=== PATIENT | female | born 1965 | race Caucasian/White ===

== ENCOUNTER 2019-12-16 06:57 | Day surgery (SDC) | payer BC, SELFPAY ==
--- NOTE | 2019-12-14 09:57 | HO.ANESPROP2 ---
Documented by User: Bernadette Her 12/14/19 09:58 [facility] Past Medical History Medical History Anemia Chronic pain syndrome Depression Fibromyalgia Hx of intestinal obstruction Hypothyroidism Low vitamin D level Nephrolithiasis Peptic ulcer Surgical History Surgical History H/O: hysterectomy Social History Social History Smoking Status: Never smoker Second Hand Smoke Exposure: Yes Use of substances other than those prescribed or required for medical reasons: No Advance Directives: No Advance Directives Information Provided: No Recently lost weight without trying: No Meds Allergies Allergy/AdvReac Type Severity Reaction Status Date / Time No Known Allergies Allergy Unverified 12/02/19 15:24 [No Known Allergies*] Home Medications Medication Instructions Recorded Confirmed Type celecoxib 1 cap PO BID PRN 12/13/19 12/13/19 History cholecalciferol (vitamin D3) 1 cap PO BEDTIME 12/13/19 12/13/19 History citalopram 1 tab PO DAILY 12/13/19 12/13/19 History cyclobenzaprine 1 tab PO BEDTIME PRN 12/13/19 12/13/19 History ferrous sulfate 325 mg PO TID 12/13/19 12/13/19 History hydrocodone-acetaminophen 1 tab PO Q8H PRN 12/13/19 12/13/19 History hydroxychloroquine 1 tab PO BID 12/13/19 12/13/19 History omeprazole 40 mg PO BID 12/13/19 12/13/19 History Exam Exam Date and Time: December 14, 2019 0957 Assessment and Plan Assessment Anesthesia Assessment: Chart Reviewed (12/14/19 HT) Documented by User: Michelle Will 12/16/19 07:17 [facility] Past Medical History Medical History Anemia Chronic pain syndrome Depression Fibromyalgia Hx of intestinal obstruction Hypothyroidism Low vitamin D level Nephrolithiasis Peptic ulcer Surgical History Surgical History H/O: hysterectomy Social History Social History Smoking Status: Never smoker Second Hand Smoke Exposure: Yes Use of substances other than those prescribed or required for medical reasons: No Advance Directives: No Advance Directives Information Provided: No Recently lost weight without trying: No Meds Allergies Allergy/AdvReac Type Severity Reaction Status Date / Time No Known Allergies Allergy Unverified 12/02/19 15:24 [No Known Allergies*] Home Medications Medication Instructions Recorded Confirmed Type celecoxib 1 cap PO BID PRN 12/13/19 12/13/19 History cholecalciferol (vitamin D3) 1 cap PO BEDTIME 12/13/19 12/13/19 History citalopram 1 tab PO DAILY 12/13/19 12/13/19 History cyclobenzaprine 1 tab PO BEDTIME PRN 12/13/19 12/13/19 History ferrous sulfate 325 mg PO TID 12/13/19 12/13/19 History hydrocodone-acetaminophen 1 tab PO Q8H PRN 12/13/19 12/13/19 History hydroxychloroquine 1 tab PO BID 12/13/19 12/13/19 History omeprazole 40 mg PO BID 12/13/19 12/13/19 History Exam Airway Mallampati Class: II TM Dist: >3cm Neck ROM: Full Loose/Missing/Broken Teeth: No Assessment and Plan Assessment Anesthesia Assessment: Anesthesia Plan Discussed, Consent Obtained and Chart Reviewed Final Anesthetic Review NPO: Yes Intake Type: Clears and Solids ASA Class: II Final Preanesthetic Review: No Changes in Pt Med Stat, Meds & Allergies Reviewed, Consent Obtained/Reviewed, Med/Surg/Anes Hx Reviewed and Anes Risks/Benef Reviewed Patient Risk: Low Procedure Risk: Low Assessment/Block/Sedation in SS: Assess/Block/Sedation-SS Anesthetic Plan Anesthetic Plan: MAC: Disposition: Standard PACU
[2019-12-16 06:55] VITALS: BP 113/68; PULSE 79; RESP 18; O2SAT 98; BMI 24.5
[2019-12-16] MEDS: Lactated Ringers 1,000 ML 100 ML IVCONT (07:19)
--- NOTE | 2019-12-16 07:57 | PC.NURSE ---
PL- IN ROOM LATE FOR NEW COMPUTER PROGRAME.
[2019-12-16 08:35] VITALS: BP 88/48; PULSE 72; RESP 16; O2SAT 95
--- NOTE | 2019-12-16 08:36 | PM.OP ---
Brief Operative Note Date of procedure: 12/17/19 Pre-op diagnosis: FU of Gastric ulcer Post-op diagnosis: other (Gastritis, Gastro-duodenal Fistula) Procedure: FLEXIBLE TRANSORAL UPPER GASTROINTESTINAL ENDOSCOPY UPPER ENDOSCOPY Consent: Indications for the procedure and potential complications of bleeding, perforation, reaction to medications and missed diagnosis were discussed with the patient and informed consent was obtained. Instrument: Olympus GIF H 190 mid size upper endoscope Monitoring: Vital signs and clinical assessment, continuous EKG monitoring, Pulse oximetry, Carbon Dioxide monitoring and blood pressure monitoring were done throughout the procedure. Procedure: The patient was placed in the left lateral decubitis position and pre-procedure medications were administered and a bite block was placed. The endoscope was inserted into the mouth and advanced under direct vision to the third part of duodenum. A careful inspection was made as the upper endoscope was withdrawn including a retroflexed examination of the proximal stomach; Findings and interventions are described below. Findings: Larynx: Normal Esophagus: GE junction at 36 cms. No esophagitis or Reyes. 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 Ulcer seen on past EGD healed completely. Mild gastric erythema. Biopsies were obtained from the gastric antrum and body. Decreased fundal folds and Grade 2 flap valve on retroflexed examination of the cardia. Duodenum: Normal bulb and descending duodenum. Biopsies were obtained from 3rd part of duodenum to check for celiac sprue. 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 Ulcer seen on past EGD healed completely. Mild gastric erythema. Biopsies were obtained from the gastric antrum and body. Decreased fundal folds and Grade 2 flap valve on retroflexed examination of the cardia. Of note - patient reports having gastric surgery for gastric outlet obstruction (? Gastrojejunostomy) several years ago in [place]. DUODENUM: Normal. Bxed to check for celiac sprue Plan: Await pathology results Continue present medications (Omeprazole at 20 mg PO once daily) Patient has an FU appointment in the GI Clinic on 12/30/19 with Toño Agudelo MD. Above findings were reviewed with the patient. Anesthesia: MAC (Dr Will) Surgeon: Toño Agudelo Pathology: other (A. Small bowel, B. Gastric antrum. C. Gastric Body) Condition: stable Disposition: PACU
[2019-12-16 08:50] VITALS: BP 117/70; PULSE 71; RESP 15; O2SAT 97
[2019-12-16 09:05] VITALS: BP 120/60; PULSE 71; RESP 18; O2SAT 99
--- NOTE | 2019-12-16 09:30 | HO.POSTANES ---
Post Anesthesia Evaluation Post Anesthesia Evaluation Vital Signs: Vital Signs Pulse Resp BP Pulse Ox 12/16/19 06:55 79 18 113/68 98 0906 - 120/60, 71, 18, 99%RA Anesthesia: Monitored Mental Status: Awake Pain Control: Satisfactory Nausea/Vomiting: None Hydration: Adequate Anesthesia-Related Issues: No Anes. Related Issues
[2019-12-16 09:37] VITALS: BP 84/49; RESP 16; TEMP 36.6; O2SAT 95
== END 2019-12-16 23:59 | disposition home or self-care (01) ==
PROVIDERS: PCP Internal Medicine; Visit Provider Internal Medicine Gastroenterology
PROC: 0DJ08ZZ Inspection of Upper Intestinal Tract, Via Natural or Artificial Opening Endoscopic (ICD-10-PCS; CPT 43235; principal; 2019-12-16 07:30)
DX: K27.9 Peptic ulcer, site unspecified, unspecified as acute or chronic, without hemorrhage or perforation (principal); K29.50 Unspecified chronic gastritis without bleeding; B96.81 Helicobacter pylori [H. pylori] as the cause of diseases classified elsewhere; K31.6 Fistula of stomach and duodenum; D64.9 Anemia, unspecified; G89.4 Chronic pain syndrome; F32.9 Major depressive disorder, single episode, unspecified; E03.9 Hypothyroidism, unspecified; E55.9 Vitamin D deficiency, unspecified; Z79.899 Other long term (current) drug therapy; Z77.22 Contact with and (suspected) exposure to environmental tobacco smoke (acute) (chronic)
CPT/HCPCS: 43239; 88305; 88342; J3010

== ENCOUNTER → 2019-12-29 14:41 | Outpatient (BNVA) | payer BC, SELFPAY | PROVIDERS: PCP Internal Medicine; Visit Provider Anesthesiology | DX: Z76.89 Persons encountering health services in other specified circumstances (principal) ==

== ENCOUNTER → 2020-02-07 08:23 | Outpatient (BNVA) | payer BC, SELFPAY | PROVIDERS: PCP Internal Medicine; Visit Provider Anesthesiology | DX: Z76.89 Persons encountering health services in other specified circumstances (principal) ==

== ENCOUNTER 2020-02-21 13:53 | Outpatient (REF) | payer BC, SELFPAY ==
[2020-02-21 14:06] LABS: Glucose Urine UA NEG (NEG); Leukocyte Esterase Urine 1+ (NEG); Nitrite Urine NEG (NEG); Specific Gravity - Urine >= 1.030 (1.005-1.025); Urine Blood 1+ (NEG); Urine Ketones NEG (NEG); Urine Protein NEG (NEG-TRACE)
[2020-02-21 14:14] LABS: Appearance Urine CLOUDY; Color Urine STRAW
[2020-02-21 14:27] LABS: Squamous Epithelial Cell Urine 1+ /LPF; White Blood Cell Casts Urine 0-2 /LPF
[2020-02-21 14:28] LABS: Mucus Urine 1+ /LPF
== END 2020-02-21 13:54 | disposition home or self-care (01) ==
LOC: HO.LNP 13:53
PROVIDERS: Visit Provider Internal Medicine
DX: M54.9 Dorsalgia, unspecified (principal)
CPT/HCPCS: 81001; 81003; 87086

== ENCOUNTER → 2020-03-08 08:02 | Outpatient (BNVA) | payer BC, SELFPAY | PROVIDERS: PCP Internal Medicine; Visit Provider Anesthesiology | DX: Z76.89 Persons encountering health services in other specified circumstances (principal) ==

== ENCOUNTER → 2020-04-06 08:17 | Outpatient (BNVA) | payer OTHER, SELFPAY | PROVIDERS: PCP Internal Medicine; Visit Provider Anesthesiology ==

== ENCOUNTER 2020-05-22 13:17 | Outpatient (REF) | payer OTHER, SELFPAY | END 2020-05-22 13:18 | disposition home or self-care (01) | LOC: HO.LAB 13:17 | PROVIDERS: Visit Provider Internal Medicine | DX: Z20.822 Contact with and (suspected) exposure to COVID-19 (principal) | CPT/HCPCS: 36415; C9803; U0003; U0005 ==

== ENCOUNTER → 2020-05-24 08:25 | Outpatient (BNVA) | payer OTHER, SELFPAY | PROVIDERS: PCP Internal Medicine; Visit Provider Anesthesiology ==

== ENCOUNTER 2020-06-19 09:29 | Outpatient (REF) | payer OTHER, SELFPAY ==
--- NOTE | ~2020-06-19 | US_ITS ---
EXAMINATION: US ABDOMEN COMPLETE CLINICAL INFORMATION: Right upper quadrant pain. COMPARISON: CT abdomen and pelvis 07/23/2019. Renal ultrasound 07/22/2019 and 04/12/2019. TECHNIQUE: Real-time imaging of the abdominal viscera. FINDINGS: PANCREAS: Normal. ABDOMINAL AORTA: The proximal, mid, and distal segments are normal in caliber. INFERIOR VENA CAVA: Visualized portions are normal. LIVER: The liver is normal in size. The liver contour is normal. Slightly heterogeneous hepatic parenchyma with minimally increased echogenicity. Findings can be seen in the setting of mild steatosis. Underlying hepatocellular disease cannot be excluded. No focal hepatic lesion. There is no intrahepatic biliary duct dilatation seen. GALLBLADDER: Normal. The gallbladder is physiologically distended without evidence of stones, sludge, polyps, wall thickening or pericholecystic fluid. COMMON BILE DUCT: Normal in caliber measuring 0.12 cm in diameter. RIGHT KIDNEY: Normal. No hydronephrosis. No renal calculi or focal parenchymal lesions. The kidney measures 10.7 cm in maximum dimension. LEFT KIDNEY: Normal. No hydronephrosis. No renal calculi or focal parenchymal lesions. The kidney measures 10.1 cm in maximum dimension. SPLEEN: Normal. The spleen measures 6.7 cm in maximum dimension. FREE FLUID: None. US/US abdomen complete IMPRESSION: Slightly heterogeneous hepatic parenchyma with minimally increased echogenicity, which can be seen in the setting of mild steatosis. Underlying basilar disease cannot be excluded. No hepatic parenchymal lesion or biliary ductal dilatation. Otherwise unremarkable examination.
== END 2020-06-19 09:30 | disposition home or self-care (01) ==
LOC: HO.US 09:29
PROVIDERS: PCP Internal Medicine; Visit Provider Internal Medicine
DX: R10.11 Right upper quadrant pain (principal)
CPT/HCPCS: 76700

== ENCOUNTER → 2020-06-21 09:01 | Outpatient (BNVA) | payer OTHER, SELFPAY | PROVIDERS: PCP Internal Medicine; Visit Provider Nurse Practitioner Family ==

== ENCOUNTER → 2020-07-19 08:27 | Outpatient (BNVA) | payer OTHER, SELFPAY | PROVIDERS: PCP Internal Medicine; Visit Provider Nurse Practitioner Family ==

== ENCOUNTER 2020-08-30 07:28 | Outpatient (REF) | payer OTHER, SELFPAY | END 2020-08-30 07:29 | disposition home or self-care (01) | LOC: HO.LAB 07:28 | PROVIDERS: Visit Provider Internal Medicine | DX: Z20.822 Contact with and (suspected) exposure to COVID-19 (principal) | CPT/HCPCS: C9803; U0003; U0005 ==

== ENCOUNTER 2020-11-08 07:28 | Outpatient (REF) | payer OTHER, SELFPAY ==
[2020-11-08 09:29] LABS: Alanine Aminotransferase 14 U/L (0-31); Albumin Level 4.2 g/dL (3.5-5.0); Alkaline Phosphatase 50 U/L (39-117); Anion Gap 11 (12-20); Aspartate Amino Transferase 16 U/L (5-31); Bilirubin Total 0.4 mg/dL (0.0-1.0); Blood Urea Nitrogen 22 mg/dL (9-16); Calcium 8.7 mg/dL (8.4-10.2); Carbon Dioxide 29 mmol/L (22-29); Chloride 103 mmol/L (96-108); Cholesterol 212 mg/dL; Estimated Glomerular Filt Rate > 60; Glucose Fasting 96 mg/dL (60-99); HDL Cholesterol 88 mg/dL; LDL Cholesterol Calculated 117 mg/dl; Potassium 4.3 mmol/L (3.3-5.1); Sodium 139 mmol/L (135-145); Total Protein 6.6 g/dL (6.5-8.0); Triglycerides 38 mg/dL
[2020-11-08 09:58] LABS: Free T4 (Free Thyroxine) 1.03 ng/dL (0.71-1.85); Thyroid Stimulating Hormone 1.25 uIU/mL (0.32-4.0); Vitamin D 25-OH Total 20.3 ng/mL (>30)
[2020-11-09 09:21] LABS: Thyroid Peroxidase Antibodies 58 IU/mL (<9)
== END 2020-11-08 07:29 | disposition home or self-care (01) ==
LOC: HO.LAB 07:28
PROVIDERS: PCP Internal Medicine; Visit Provider Internal Medicine
DX: E03.9 Hypothyroidism, unspecified (principal)
CPT/HCPCS: 36415; 80053; 80061; 82306; 84439; 84443; 86376

== ENCOUNTER 2020-11-13 10:42 | Outpatient (REF) | payer OTHER, SELFPAY ==
--- NOTE | ~2020-11-13 | XR_ITS ---
EXAMINATION: XR CHEST CLINICAL INFORMATION: Cough COMPARISON: Previous chest x-ray most recent July 2019 TECHNIQUE: 2 views of the chest were obtained. FINDINGS: The cardiac and mediastinal contours are stable. There is mild biapical pleural thickening. The lungs are otherwise clear. There is no pleural effusion or pneumothorax. Bony structures are unremarkable. XR/XR chest 2V IMPRESSION: No evidence for acute disease in the chest.
== END 2020-11-13 10:43 | disposition home or self-care (01) ==
LOC: HO.HMGCX 10:42
PROVIDERS: PCP Internal Medicine; Visit Provider Internal Medicine
DX: Z13.89 Encounter for screening for other disorder (principal)
CPT/HCPCS: 71046

== ENCOUNTER → 2020-12-26 10:11 | Outpatient (BNVA) | payer OTHER, SELFPAY | PROVIDERS: PCP Internal Medicine; Referring Provider Internal Medicine; Visit Provider Nurse Practitioner ==

== ENCOUNTER 2020-12-27 10:00 | Outpatient (REF) | payer OTHER, SELFPAY ==
--- NOTE | ~2020-12-27 | US_ITS ---
EXAMINATION: US ABDOMEN COMPLETE CLINICAL INFORMATION: Fistula of stomach and duodenum, gastric pain. COMPARISON: Ultrasound abdomen complete 06/19/2020. Ultrasound kidneys and bladder 12/30/2019. CT abdomen and pelvis 07/23/2019. TECHNIQUE: Real-time imaging of the abdominal viscera. FINDINGS: PANCREAS: Normal ABDOMINAL AORTA: The proximal, mid, and distal segments are normal in caliber. INFERIOR VENA CAVA: Visualized portions are normal. LIVER: The liver is normal in size. The liver contour is normal. Parenchymal echogenicity is normal. There is an anechoic cyst in the right hepatic lobe measuring 0.6 x 0.5 x 0.4 cm. There is no intrahepatic biliary duct dilatation seen. GALLBLADDER: Normal. The gallbladder is physiologically distended without evidence of stones, sludge, polyps, wall thickening or pericholecystic fluid. COMMON BILE DUCT: Normal in caliber measuring 0.5 cm in diameter. RIGHT KIDNEY: There is an echogenic stone upper pole measuring 0.1 x 0.2 cm. No hydronephrosis or focal parenchymal lesions. The kidney measures 10.8 cm in maximum dimension. LEFT KIDNEY: Normal. No hydronephrosis. No renal calculi or focal parenchymal lesions. The kidney measures 10.4 cm in maximum dimension. SPLEEN: Normal. The spleen measures 7.4 cm in maximum dimension. FREE FLUID: None US/US abdomen complete IMPRESSION: Small right hepatic cyst measuring 0.6 x 0.5 x 0.4 cm. Echogenic upper pole stone right kidney without caliectasis or hydronephrosis. The rest of the abdominal ultrasound is unremarkable.
== END 2020-12-27 10:01 | disposition home or self-care (01) ==
LOC: HO.US 10:00
PROVIDERS: PCP Internal Medicine; Visit Provider Internal Medicine
DX: K31.6 Fistula of stomach and duodenum (principal); R10.13 Epigastric pain
CPT/HCPCS: 76700

== ENCOUNTER 2021-01-12 11:10 | Day surgery (SDC) | payer OTHER, SELFPAY ==
[2021-01-05 14:24] VITALS: BMI 27.4
--- NOTE | 2021-01-11 09:48 | HO.ANESPROP2 ---
Documented by User: Bernadette Her NP 01/11/21 09:51 HPI - Anesthesia Eval Consult details Narrative: 55yo F for Upper Endoscopy s/p EGD 12/2019 with [facility] Active Problems Active Problems: All Active Problems (Updated 01/05/21 @ 14:25 by Loren Flores, LARISSA) RUQ abdominal pain (Acute) Dysuria (Acute) Iron deficiency (Chronic) Epigastric pain (Acute) Vitamin D deficiency (Acute) Hypothyroidism (Acute) Gastroduodenal fistula (Acute) Chronic, continuous use of opioids (Acute) Chronic pain syndrome (Acute) Spondylosis of lumbar region without myelopathy or radiculopathy (Acute) Spondylosis of cervical spine without myelopathy (Acute) Fibromyalgia, primary (Acute) Past Medical History Medical History Anemia Chronic pain syndrome Chronic, continuous use of opioids COVID-19 vaccine series completed Depression Fibromyalgia, primary Gastric outlet obstruction Gastroduodenal fistula Hx of intestinal obstruction Hypothyroidism Low vitamin D level Nephrolithiasis Peptic ulcer 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 Vitamin D deficiency Family History Family History Father Stomach cancer Mother HTN (hypertension) Surgical History Surgical History H/O colonoscopy H/O: hysterectomy History of endoscopy Social History Social History Housing: Apartment Alcohol intake: current Alcohol intake frequency: a few times a month Patient Tobacco Use Status: Former Tobacco user Years Smoked: 20 yrs e-Cigarette/Vaping Use: Never Used Second Hand Smoke Exposure: No Advance Directives Information Provided: Yes (informational brochure mailed) Advance Directives on File: No service: No Current occupational status: employed Current occupation: [employer] Allergies Allergy/AdvReac Type Severity Reaction Status Date / Time No Known Allergies Allergy Verified 01/12/21 11:14 [No Known Allergies*] Home Medications Medication Instructions Recorded Confirmed Last Taken Type cholecalciferol (vitamin D3) 25 1 cap PO BEDTIME 12/13/19 01/05/21 Unknown History mcg (1,000 unit) capsule hydroxychloroquine 200 mg tablet 300 mg PO BEDTIME 12/13/19 01/05/21 Unknown History alendronate 70 mg tablet 0 mg PO DIRECTED 12/29/19 01/05/21 Unknown History methotrexate sodium 2.5 mg tablet 22.5 mg PO QWEEK 12/29/19 01/05/21 Unknown History celecoxib 200 mg capsule 200 mg PO ONCE PRN cap 10/17/20 01/05/21 Unknown History folic acid 1 mg tablet 1 mg PO DAILY 10/17/20 01/05/21 01/10/21 History prednisone 1 mg tablet 1 mg PO Q2D 10/17/20 01/05/21 Unknown History vitamin B complex 1 cap PO DAILY 10/17/20 01/05/21 Unknown History Exam Exam Date and Time: January 11, 2021 0948 Height,Weight and Vital Signs: Height 5 ft 2 in Weight 68.039 kg Pertinent Lab Results Pertinent Lab Results: Laboratory Tests 05/09/20 11/08/20 14:02 07:30 WBC 10.6 Hgb 11.2 L Hct 34.8 L Plt Count 267 Sodium 139 Potassium 4.3 Chloride 103 Carbon Dioxide 29 BUN 22 H Creatinine 0.74 Assessment and Plan Assessment Anesthesia Assessment: Chart Reviewed Documented by User: Tammy Driver MD 01/12/21 12:33 [facility] Past Medical History Medical History Anemia Chronic pain syndrome Chronic, continuous use of opioids COVID-19 vaccine series completed Depression Fibromyalgia, primary Gastric outlet obstruction Gastroduodenal fistula Hx of intestinal obstruction Hypothyroidism Low vitamin D level Nephrolithiasis Peptic ulcer 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 Vitamin D deficiency Family History Family History Father Stomach cancer Mother HTN (hypertension) Surgical History Surgical History H/O colonoscopy H/O: hysterectomy History of endoscopy History of Problems with Anesthesia: No Social History Social History Housing: Apartment Alcohol intake: current Alcohol intake frequency: a few times a month Patient Tobacco Use Status: Former Tobacco user Years Smoked: 20 yrs e-Cigarette/Vaping Use: Never Used Second Hand Smoke Exposure: No Advance Directives Information Provided: Yes (informational brochure mailed) Advance Directives on File: No service: No Current occupational status: employed Current occupation: [employer] Meds Allergies Allergy/AdvReac Type Severity Reaction Status Date / Time No Known Allergies Allergy Verified 01/12/21 11:14 [No Known Allergies*] Home Medications Medication Instructions Recorded Confirmed Last Taken Type cholecalciferol (vitamin D3) 25 1 cap PO BEDTIME 12/13/19 01/05/21 Unknown History mcg (1,000 unit) capsule hydroxychloroquine 200 mg tablet 300 mg PO BEDTIME 12/13/19 01/05/21 Unknown History alendronate 70 mg tablet 0 mg PO DIRECTED 12/29/19 01/05/21 Unknown History methotrexate sodium 2.5 mg tablet 22.5 mg PO QWEEK 12/29/19 01/05/21 Unknown History celecoxib 200 mg capsule 200 mg PO ONCE PRN cap 10/17/20 01/05/21 Unknown History folic acid 1 mg tablet 1 mg PO DAILY 10/17/20 01/05/21 01/10/21 History prednisone 1 mg tablet 1 mg PO Q2D 10/17/20 01/05/21 Unknown History vitamin B complex 1 cap PO DAILY 10/17/20 01/05/21 Unknown History Exam Airway Mallampati Class: II TM Dist: >3cm Neck ROM: Full Loose/Missing/Broken Teeth: No Heart: RRR Lungs: CTA Assessment and Plan Assessment Anesthesia Assessment: Anesthesia Plan Discussed Final Anesthetic Review History of Problems with Anesthesia: No NPO: Yes ASA Class: II Final Preanesthetic Review: Meds/Allgs Chart Reviewed, Consent Obtained/Reviewed and Anes Risks/Benef Reviewed Patient Risk: Low Procedure Risk: Intermediate Anesthetic Plan Anesthetic Plan: MAC: Disposition: Standard PACU
[2021-01-12 11:27] VITALS: BP 115/70; PULSE 78; RESP 16; TEMP 36.6; O2SAT 97
[2021-01-12] MEDS: Lactated Ringers 1,000 ML 100 ML IVCONT (11:42)
--- NOTE | 2021-01-12 12:19 | MHC.SHP ---
Pre-Procedural Eval Section A Date of Service: 01/12/21 The patient is an INPATIENT: No Changes since office visit: Yes Patient answered all questions; No Cold of Flu in the past 2 weeks, No New Medical Problems and No Changes in Medication The History & Physical has been completed within 30 days and I have reviewed it.: Yes Section B Chief Complaint: Epigastric Pain Allergies: Allergies Allergy/AdvReac Type Severity Reaction Status Date / Time No Known Allergies Allergy Verified 01/12/21 11:14 [No Known Allergies*] Plan I have reviewed the history and physical and performed a pertinent physical examination on my patient. No changes have occurred unless specified.
--- NOTE | 2021-01-12 12:20 | P.BOP_ITS ---
Brief Operative Note Date of Service: 01/12/21 Pre-op diagnosis: Epigastric pain Post-op diagnosis: other (Gastritis, Gasto-duodenal fistula) Procedure: FLEXIBLE TRANSORAL UPPER GASTROINTESTINAL ENDOSCOPY WITH BIOPSIES Consent: Indications for the procedure and potential complications of bleeding, perforation, reaction to medications and missed diagnosis were discussed with the patient and informed consent was obtained. Instrument: Olympus GIF H 190 mid size upper endoscope Monitoring: Vital signs and clinical assessment, continuous EKG monitoring, Pulse oximetry, Carbon Dioxide monitoring and blood pressure monitoring were done throughout the procedure. Procedure: The patient was placed in the left lateral decubitis position and pre-procedure medications were administered and a bite block was placed. The endoscope was inserted into the mouth and advanced under direct vision to the third part of duodenum. A careful inspection was made as the upper endoscope was withdrawn including a retroflexed examination of the proximal stomach; Findings and interventions are described below. Findings: Larynx: Normal Esophagus: GE junction at 38 cms. No esophagitis or Reyes Stomach: Moderate diffuse gastric erythema. Biopsies were obtained. 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 Grade 2 flap valve on retroflexed examination of the cardia. Duodenum: Normal bulb and descending duodenum. Biopsies obtained from 3rd part of duodenum to check for celiac sprue. Intervention: Biopsies as noted above Impression and Post Procedure Diagnosis: Endoscopy Findings: STOMACH: Moderate diffuse gastric erythema. Biopsies were obtained. 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 DUODENUM: Normal - biopsied to check for celiac sprue Plan: Await pathology results Patient has an appointment on 01/19/21 in the GI Clinic with Jo Green NP . Surgeon: Toño Agudelo MD Anesthesia: MAC (Vicky Acevedo CRNA) Was an Telecommunications Network Engineer used for this Procedure?: No Estimated blood loss (mL): 0 Pathology: other (a- small bowel bxs r/o spru b- gastric antrum bxs r/o h. pylori c- gastric body bxs) Condition: stable Disposition: PACU
--- NOTE | 2021-01-12 12:21 | W.PM.OPN ---
Operative Note Operative Note Date of Service: 01/12/21 Narrative: Pre-op diagnosis:?Epigastric pain Post-op diagnosis:?other (Gastritis, Gasto-duodenal fistula) Procedure:? FLEXIBLE TRANSORAL UPPER GASTROINTESTINAL ENDOSCOPY WITH BIOPSIES Consent:?Indications for the procedure and potential complications of bleeding, perforation, reaction to medications and missed diagnosis were discussed with the patient and informed consent was obtained. Instrument:?Olympus GIF H 190 mid size upper endoscope Monitoring: Vital signs and clinical assessment, continuous EKG monitoring, Pulse oximetry, Carbon Dioxide monitoring and blood pressure monitoring were done throughout the procedure. Procedure:?The patient was placed in the left lateral decubitis position and pre-procedure medications were administered and a bite block was placed. The endoscope was inserted into the mouth and advanced under direct vision to the third part of duodenum. A careful inspection was made as the upper endoscope was withdrawn including a retroflexed examination of the proximal stomach; Findings and interventions are described below. Findings: Larynx:? Normal Esophagus: GE junction at 38 cms.? No esophagitis or Reyes Stomach: Moderate diffuse gastric erythema. Biopsies were obtained. 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 Grade 2 flap valve on retroflexed examination of the cardia. Duodenum: Normal bulb and descending duodenum.? Biopsies obtained from 3rd part of duodenum to check for celiac sprue. Intervention:?Biopsies as noted above Impression and Post Procedure Diagnosis: Endoscopy Findings: STOMACH: Moderate diffuse gastric erythema. Biopsies were obtained. 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 DUODENUM: Normal - biopsied to check for celiac sprue Plan: Await pathology results Patient has an appointment on 01/19/21 in the GI Clinic with Jo Green NP . Surgeon:?Toño Agudelo MD Anesthesia:?MAC (Vicky Acevedo CRNA) Was an Slat Basket Maker Helper Machine used for this Procedure?:?No Estimated blood loss (mL):?0 Pathology:?other (a- small bowel bxs? r/o spru? b- gastric antrum bxs? r/o h. pylori? c- gastric body bxs) Condition:?stable Disposition:?PACU
[2021-01-12 12:44] VITALS: BP 109/63; PULSE 75; RESP 16; TEMP 36.7; O2SAT 99
[2021-01-12 12:59] VITALS: BP 119/74; PULSE 79; RESP 16; TEMP 36.6; O2SAT 97
== END 2021-01-12 13:32 | disposition home or self-care (01) ==
PROVIDERS: PCP Internal Medicine; Visit Provider Internal Medicine Gastroenterology
PROC: 0DJ08ZZ Inspection of Upper Intestinal Tract, Via Natural or Artificial Opening Endoscopic (ICD-10-PCS; CPT 43235; principal; 2021-01-12 12:00)
DX: R10.13 Epigastric pain (principal); R14.2 Eructation; K29.40 Chronic atrophic gastritis without bleeding; B96.81 Helicobacter pylori [H. pylori] as the cause of diseases classified elsewhere; Z87.11 Personal history of peptic ulcer disease; K31.6 Fistula of stomach and duodenum; M79.7 Fibromyalgia; D50.9 Iron deficiency anemia, unspecified; E55.9 Vitamin D deficiency, unspecified; Z79.899 Other long term (current) drug therapy; Z79.52 Long term (current) use of systemic steroids; Z87.891 Personal history of nicotine dependence
CPT/HCPCS: 43239; 88305; 88342

== ENCOUNTER → 2021-01-17 08:01 | Outpatient (BNVA) | payer OTHER, SELFPAY | PROVIDERS: PCP Internal Medicine; Visit Provider Nurse Practitioner Family ==

== ENCOUNTER → 2021-01-19 08:46 | Outpatient (BNVA) | payer OTHER, SELFPAY | PROVIDERS: PCP Internal Medicine; Visit Provider Nurse Practitioner ==

== ENCOUNTER 2021-02-15 10:12 | Outpatient (REF) | payer OTHER, SELFPAY ==
[2021-02-15 11:10] LABS: COVID-19 Test Negative (Negative)
== END 2021-02-15 10:13 | disposition home or self-care (01) ==
LOC: HO.LAB 10:12
PROVIDERS: Visit Provider Internal Medicine
DX: Z20.822 Contact with and (suspected) exposure to COVID-19 (principal)
CPT/HCPCS: 36415; 87635; C9803

== ENCOUNTER 2021-03-22 12:30 | Outpatient (REF) | payer OTHER, SELFPAY | END 2021-03-22 12:31 | disposition home or self-care (01) | LOC: HO.LAB 12:30 | PROVIDERS: Visit Provider Internal Medicine | DX: Z13.89 Encounter for screening for other disorder (principal) ==

== ENCOUNTER → 2021-03-23 09:22 | Outpatient (BNVA) | payer OTHER, SELFPAY | PROVIDERS: PCP Internal Medicine; Referring Provider Internal Medicine; Visit Provider Nurse Practitioner ==

== ENCOUNTER 2021-06-04 13:53 | Outpatient (REF) | payer OTHER, SELFPAY | END 2021-06-04 13:54 | disposition home or self-care (01) | LOC: HO.LNP 13:53 | PROVIDERS: Visit Provider Nurse Practitioner | DX: A04.8 Other specified bacterial intestinal infections (principal) | CPT/HCPCS: 87338 ==

== ENCOUNTER 2021-07-26 16:11 | Outpatient (REF) | payer OTHER, SELFPAY ==
--- NOTE | ~2021-07-26 | XR_ITS ---
EXAMINATION: XR SACRUM AND COCCYX CLINICAL INFORMATION: Unspecified fall. COMPARISON: Lumbar spine radiographs dated 12/29/2018. TECHNIQUE: 2 views of the sacrum and 2 views of the coccyx were obtained. FINDINGS: There are no fractures. No bone, joint or soft tissue abnormality is demonstrated. XR/XR sacrum coccyx min 2V IMPRESSION: Unremarkable examination.
== END 2021-07-26 16:12 | disposition home or self-care (01) ==
LOC: HO.HMGCX 16:11
PROVIDERS: PCP Internal Medicine; Visit Provider Internal Medicine
DX: S39.92XA Unspecified injury of lower back, initial encounter (principal); W18.30XA Fall on same level, unspecified, initial encounter; Y93.9 Activity, unspecified; Y92.9 Unspecified place or not applicable; Y99.0 Civilian activity done for income or pay
CPT/HCPCS: 72220

== ENCOUNTER 2021-08-08 13:52 | Outpatient (REF) | payer OTHER, SELFPAY ==
[2021-08-08 13:55] LABS: Urine Cytology See Pathology rpt
== END 2021-08-08 13:53 | disposition home or self-care (01) ==
LOC: HO.LNP 13:52
PROVIDERS: Visit Provider Internal Medicine
DX: R31.29 Other microscopic hematuria (principal)
CPT/HCPCS: 88112

== ENCOUNTER 2021-10-02 13:13 | Outpatient (REF) | payer OTHER, SELFPAY ==
[2021-10-02 14:48] LABS: Thyroid Stimulating Hormone 2.35 uIU/mL (0.32-4.0)
== END 2021-10-02 13:14 | disposition home or self-care (01) ==
LOC: HO.HMGCLDS 13:13
PROVIDERS: PCP Internal Medicine; Visit Provider Internal Medicine
DX: E03.9 Hypothyroidism, unspecified (principal)
CPT/HCPCS: 36415; 84439; 84443

== ENCOUNTER 2022-03-01 15:00 | Outpatient (RCR) | payer OTHER, SELFPAY | END 2022-04-26 10:45 | disposition home or self-care (01) | LOC: HO.PT 15:00 | PROVIDERS: Visit Provider Internal Medicine Rheumatology | DX: M25.812 Other specified joint disorders, left shoulder (principal) | CPT/HCPCS: 97110; 97162 ==

== ENCOUNTER 2022-10-31 08:12 | Outpatient (AMB) | payer OTHER, SELFPAY ==
--- NOTE | 2022-10-31 08:18 | MHC.OFFVIS ---
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 pylori infection: ?Comment: Has failed quadruple and leva/amox rescue now onto rifabutin/amox ?Code(s): A04.8 - Other specified bacterial intestinal infections ?Plan: She completed the rifabutin/amox rescue therapy about 2 weeks ago. She has had improvement in her epigastric discomfort, but still has acid brash and GERD sx. She continues on omeprazole bid and I encourage this. Since she had one prior false negative stool antigen (may be influenced by PPI) she wants to wait another couple of weeks to retest. This is acceptable. I explain that the direct biopsy is the most accurate test, and all tests may produce false negtives. She is most bothered by continued coughing and respiratory sx. She plans to see a pulmonology provider at [facility] in [place], since she already is an established pt there for rheumatology problems of nonspecific inflammation. ROV 8 weeks as this should give her time to complete the stool and then we will decide any further tx. (2) Gastroduodenal fistula: ?Comment: s/p EGD? done by Dr. Agudelo in 2019 ?Code(s): K31.6 - Fistula of stomach and duodenum ? ? ? Orders:?Orders H pylori Ag StoolA Today A04.8 - Other spec ified bacterial in testinal infection s ? LABS: Problems Hypothyroidism (Acute) Vitamin D deficiency (Acute) Laboratory Tests 06/04/21 09:30 Stool H. pylori Ag negative TODAY'S VISIT She will be due for repeat scope next year, she would like the pill prep. She seems to be doing well, she will have intermittent epigastric soreness and HB but this goes away when she drinks milk. She has not been taking the omeprazole for quite some time, and I will give her famotidine as this is better for prn use. She has a strong FHX of polyps in her brother. She was on sure she should repeat her colonoscopy in 3 or 5 years but after speaking with her brother we decide the 5 years is sufficient. With this she will be due for repeat colonoscopy next year. ROV 1 years. 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 Vitamin D deficiency Surgical History H/O colonoscopy H/O: hysterectomy History of endoscopy Family History Father Stomach cancer Mother HTN (hypertension) Social History Housing: Apartment Alcohol intake: current Alcohol intake frequency: a few times a month Patient Tobacco Use Status: Former Tobacco user Years Smoked: 20 yrs e-Cigarette/Vaping Use: Never Used Second Hand Smoke Exposure: No service: No Current occupational status: employed Current occupation: [employer] Cognitive needs: No Hearing needs: No Vision needs: Yes Review of Systems Const Denies fatigue, Denies fever(s), Denies night sweats, Denies poor appetite and Denies weight loss Eyes Details: glasses Reports requires corrective lenses ENT Reports Normal hearing present, Denies dental pain, Denies dysphagia, Denies hearing loss, Denies mouth pain, Denies odynophagia, Denies throat swelling, Denies tongue swelling and Reports other (Dentition adequate) Card Reports no additional complaints Resp Reports no additional complaints GI Denies abdominal pain, Denies melena, Denies bloating, Denies hematochezia, Denies constipation, Denies GI cramping, Denies dysphagia, Denies excessive flatus, Denies early satiety, Reports heartburn, Denies diarrhea, Denies nausea, Denies odynophagia, Denies vomiting and Denies hematemesis Skin/Breast Denies pruritus, Denies lesions, Denies rash and Denies jaundice Neuro Reports Normal hearing present and Denies Abnormal speech present Endo Denies fatigue Aller/Immun Denies throat swelling and Denies tongue swelling Physical Exam Vital Signs: Last Vital Signs Pulse 79 10/31/22 08:19 BP 121/71 10/31/22 08:19 BMI result Body Mass Index 25.4 Const General: cooperative, no acute distress, well developed and well groomed Nutritional Appearance: average body habitus and well nourished Orientation/consciousness: oriented to person, oriented to place and oriented to time Limitations: No language barrier HEENT Head: Yes normocephalic and Yes atraumatic Eyes General: appearance normal, both eyes and all related structures Pupils: Equal, round and reactive pupils present Neck Neck: Yes normal visual inspection and Yes no lymphadenopathy Thyroid: Thyroid normal Resp Effort & Inspection: normal respiratory effort and able to speak in complete sentences Auscultation: clear to auscultation bilaterally Cardio Rate: regular rate Rhythm: regular rhythm Heart sounds: Normal, physiologic split S2 sound present Peripheral pulses: radial pulses present and posterior tibial pulses present GI Inspection: No distended and No Abdominal panniculus present Palpation (GI): Soft to palpation, nontender, no guarding, not rigid and No hepatosplenomegaly present Percussion: Yes normal to percussion Auscultation: normal bowel sounds Rectal Exam - Female: deferred Skin General skin exam: no rashes or lesions noted, turgor normal, skin not dry, no jaundice, No spider nevi and no striae Rashes: no rashes Nails: normal Neuro General: oriented to person, oriented to place and oriented to time Cranial nerves: Yes Equal, round and reactive pupils present and Yes Normal hearing present Speech: No Abnormal speech present Extrem General: Yes normal to inspection, No clubbing, No cyanosis and No edema Psych Appearance: grossly normal and well kempt Mental Status: mental status grossly normal Speech and movement: Normal speech and movement present Affect: normal affect Attitude: cooperative Thought process: Normal thought process present and not confabulating Thought content: Normal thought content present Insight: Fair insight present (Psych) Judgement: Fair judgement present (Psych) Assessment & Plan Assessment & Plan (1) H. pylori infection: Comment: Has failed quadruple and leva/amox rescue now onto rifabutin/amox, had a negative H pylori stool antigen 05/2022 however she has had negative antigens in the past with positive direct biopsies. Code(s): A04.8 - Other specified bacterial intestinal infections Plan: She will be due for repeat scope next year, she would like the pill prep. She seems to be doing well, she will have intermittent epigastric soreness and HB but this goes away when she drinks milk. She has not been taking the omeprazole for quite some time, and I will give her famotidine as this is better for prn use. She has a strong FHX of polyps in her brother. She was on sure she should repeat her colonoscopy in 3 or 5 years but after speaking with her brother we decide the 5 years is sufficient. With this she will be due for repeat colonoscopy next year. ROV 1 years. (2) Epigastric pain: Code(s): R10.13 - Epigastric pain Medications: New famotidine (Pepcid) 40 mg PO BEDTIME 30 tabs 6RF R10.13 - Epigastric pain Coding Level of Care Code Est Pt Level 3 (01721) Diagnoses H. pylori infection A04.8 Epigastric pain R10.13
[2022-10-31 08:19] VITALS: BP 121/71; PULSE 79; BMI 25.4
== END 2022-10-31 08:54 | disposition home or self-care (01) ==
PROVIDERS: Visit Provider Nurse Practitioner
DX: A04.8 Other specified bacterial intestinal infections (principal); R10.13 Epigastric pain
CPT/HCPCS: 99213

== ENCOUNTER → 2022-10-31 08:12 | Outpatient (BNVA) | payer OTHER, SELFPAY | PROVIDERS: Visit Provider Nurse Practitioner ==

== ENCOUNTER → 2023-11-12 14:55 | Outpatient (RCR) | payer OTHER, SELFPAY ==
[2020-05-09 13:34] VITALS: BP 117/62; PULSE 72; RESP 12; TEMP 36.4; O2SAT 98; BMI 25.9
[2020-05-09 14:19] LABS: MANUAL DIFF FLAG NO
[2020-05-09 14:24] LABS: Basophils Absolute Auto 0.1 X10*3/uL (0.0-0.2); Basophils Percent Auto 0.5 % (0-2); Eosinophils Absolute Auto 0.1 X10*3/uL (0.0-0.4); Eosinophils Percent Auto 0.6 % (0-4); Hematocrit 34.8 % (37-47); Hemoglobin 11.2 g/dl (12.0-16.0); Imm Gran Abs Auto 0.05 X10*3/uL (0.00-0.03); Imm Gran Pct Auto 0.5 % (0.0-0.4); Lymphocytes Absolute Auto 2.9 X10*3/uL (1.2-4.9); Lymphocytes Percent Auto 27.2 % (20-40); Mean Corpuscular HGB Conc 32.2 g/dl (31.0-35.0); Mean Corpuscular Hemoglobin 31.2 pg (27.0-33.0); Mean Corpuscular Volume 96.9 fL (80-98); Mean Platelet Volume 9.3 fL (9.4-12.3); Monocytes Absolute Auto 0.8 X10*3/uL (0.1-1.2); Monocytes Percent Auto 7.6 % (2-11); Neutrophils Absolute Auto 6.8 X10*3/uL (2.0-8.3); Neutrophils Percent Auto 63.6 % (45-73); Platelet Count 267 X10*3/uL (160-400); Red Blood Count 3.59 X10*6/uL (4.20-5.50); Red Cell Distribution Width 12.4 % (11.0-16.0); White Blood Count 10.6 X10*3/uL (4.8-10.8)
[2020-05-09 14:48] LABS: Iron 103 mcg/dL (30-160); Percent Iron Saturation 39 % (15-50); Total Iron Binding Capacity 261 mcg/dL (228-428); Unsaturated Iron Binding 158 ug/dL
--- NOTE | 2020-05-09 14:49 | PM.HEMONCPN ---
Medical Summary - Medical Summary Date of Service: 05/09/20 Chief complaint: follow-up Medical Summary: Diagnosis is iron deficiency anemia, blood loss secondary to peptic ulcer disease 07/22/2019 hemoglobin 7.4 gram/dL. Anemia/iron deficiency related to coffee ground emesis, pre-pyloric ulcer noted on EGD. Previous colonoscopy/endoscopy in 2018 was negative. History of Present Illness: Interval History Interval history: Patient is here in follow-up. She is doing okay, she is being followed closely by pain clinic in [place]. She is on steroids for her fibromyalgia. This is being tapered down very gradually. 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 She has had a follow-up EGD and has had resolution of peptic ulcer disease. She denies any complaints such as fatigue, exertional shortness of breath, cough, fever or chills. No abdominal discomfort or change in bowel habits. 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 Family History: Family History (Last Updated 02/18/20 @ 12:43 by Stefani Real, RMA, [facility]) Father Stomach cancer Mother HTN (hypertension) Surgical History: Surgical History (Last Reviewed 12/16/19 @ 07:14 by Michelle Will) H/O: hysterectomy Social History: Social History (Last Updated 05/09/20 @ 13:37 by Keyana Flores) Alcohol History: Alcohol intake: current Alcohol History Details: Alcohol intake frequency: a few times a month Tobacco History: Smoking Status: Former smoker Cigarettes Per Day: 2 Smoking Quit Date: 2007 Second Hand Smoke Exposure: Yes Substance Use History: Use of substances other than those prescribed or required for medical reasons: No Smoking status: Former smoker Oncology Screenings - ECOG Performance Status ECOG Performance Status: 0 Home Medications and Allergies Home Medications Medication Instructions Recorded Confirmed Type cholecalciferol (vitamin D3) 1 cap PO BEDTIME 12/13/19 05/09/20 History ferrous sulfate 325 mg PO TID 12/13/19 05/09/20 History hydroxychloroquine 1 tab PO BID 12/13/19 05/09/20 History alendronate 70 mg tablet 0 mg PO DIRECTED 12/29/19 05/09/20 History methotrexate sodium 2.5 mg tablet 15 mg PO QWEEK 12/29/19 05/09/20 History omeprazole 40 mg capsule,delayed See Rx Instructions PO BID 02/21/20 05/09/20 History release prednisone 10 mg tablet 10 mg PO DAILY 03/08/20 05/09/20 History Allergies Allergy/AdvReac Type Severity Reaction Status Date / Time No Known Allergies Allergy Verified 04/06/20 08:31 [No Known Allergies*] Exam Vital signs: Vital Signs Temp 97.5 F 05/09/20 13:34 Pulse 72 05/09/20 13:34 Resp 12 05/09/20 13:34 BP 117/62 05/09/20 13:34 Pulse Ox 98 05/09/20 13:34 Intake & Output 05/08/20 05/09/20 05/09/20 18:59 06:59 18:59 Other: Weight 64.5 kg [place] Weight in Grams 45452 Weight 64.5 kg Body Mass Index 25.9 - Constitutional Present: no acute distress - Routine HEENT Exam Head: Present: normal inspection Eye: Present: EOMI, conjunctivae pink - Routine Neck Exam Present: normal inspection - Routine Respiratory Exam Present: CTAB - Routine Cardiovascular Exam Cardiovascular: Present: S1, S2 Data - Labs CBC & Chem 7: 05/09/20 14:02 Labs: 05/09/20 14:02 Complete Blood Count Auto Diff Routine IRON PROFILE Routine Laboratory Last Values WBC 10.6 X10*3/uL (4.8-10.8) 05/09/20 14:02 RBC 3.59 X10*6/uL (4.20-5.50) L 05/09/20 14:02 Hgb 11.2 g/dl (12.0-16.0) L 05/09/20 14:02 Hct 34.8 % (37-47) L 05/09/20 14:02 MCV 96.9 fL (80-98) 05/09/20 14:02 MCH 31.2 pg (27.0-33.0) 05/09/20 14:02 MCHC 32.2 g/dl (31.0-35.0) 05/09/20 14:02 RDW 12.4 % (11.0-16.0) 05/09/20 14:02 Plt Count 267 X10*3/uL (160-400) 05/09/20 14:02 MPV 9.3 fL (9.4-12.3) L 05/09/20 14:02 Immature Gran % (Auto) 0.5 % (0.0-0.4) H 05/09/20 14:02 Neut % (Auto) 63.6 % (45-73) 05/09/20 14:02 Lymph % (Auto) 27.2 % (20-40) 05/09/20 14:02 [place] % (Auto) 7.6 % (2-11) 05/09/20 14:02 Eos % (Auto) 0.6 % (0-4) 05/09/20 14:02 Baso % (Auto) 0.5 % (0-2) 05/09/20 14:02 Lymph # (Auto) 2.9 X10*3/uL (1.2-4.9) 05/09/20 14:02 [place] # (Auto) 0.8 X10*3/uL (0.1-1.2) 05/09/20 14:02 Eos # (Auto) 0.1 X10*3/uL (0.0-0.4) 05/09/20 14:02 Baso # (Auto) 0.1 X10*3/uL (0.0-0.2) 05/09/20 14:02 Abs Immat Gran (auto) 0.05 X10*3/uL (0.00-0.03) H 05/09/20 14:02 Absolute Neuts (auto) 6.8 X10*3/uL (2.0-8.3) 05/09/20 14:02 Absolute Nucleated RBC 0.000 X10*3/uL (0.0-0.012) 05/09/20 14:02 Nucleated RBC % (auto) 0.0 /100WBC (0.0-0.2) 05/09/20 14:02 Iron 103 mcg/dL (30-160) 05/09/20 14:02 TIBC 261 mcg/dL (228-428) 05/09/20 14:02 % Saturation 39 % (15-50) 05/09/20 14:02 Unsat Iron Binding 158 ug/dL 05/09/20 14:02 Progress Note: A/P (1) Iron deficiency Status: Chronic Assessment and plan: 1. This is a 54-year-old woman presenting with iron deficiency anemia related to GI blood losses, gastric ulcer noted on EGD in 2019. She received blood transfusion for hemoglobin of 7.4 gram/dL. She has been on oral iron supplementation, she received iron dextran September 2019. No other cause for anemia such as B12 or folic acid deficiency, kidney or liver function abnormalities found on blood work. No evidence of hemolysis. She probably has anemia of underlying inflammation/chronic disease as well as iron deficiency. Her hemoglobin has stabilized around 11.5 gram/dL. Iron studies are normal. I have asked her to stop iron supplementation. Follow-up in 6 months. - Time Spent With Patient Total time spent is greater than 50% in coordination of care (as documented) at patient's floor/unit and/or counseling patient: 25 - 35 minutes
--- NOTE | 2020-05-09 14:52 | MHC.HEMONCMA ---
Patient came in for a follow up today, states she is doing well. Allergies and medications were reviewed and updated. She had labs drawn and will return in 6 months for a follow up.
== END | disposition home or self-care (01) ==
LOC: HO.ONC 05-09 13:21
PROVIDERS: PCP Internal Medicine; Visit Provider Internal Medicine
DX: D50.0 Iron deficiency anemia secondary to blood loss (chronic) (principal); K27.4 Chronic or unspecified peptic ulcer, site unspecified, with hemorrhage; M79.7 Fibromyalgia; Z79.52 Long term (current) use of systemic steroids; Z79.899 Other long term (current) drug therapy
CPT/HCPCS: 36415; 83540; 85025; 99213

== ENCOUNTER 2025-01-12 15:38 | Outpatient (AMB) | payer OTHER, SELFPAY ==
[2025-01-12 15:43] VITALS: BP 143/77; PULSE 85; BMI 27.4
--- NOTE | 2025-01-12 15:43 | A.OFFVIS_ITS ---
Vital Signs 01/12/25 15:43 Height 5 ft 2 in Weight 149 lb 14.629 oz BMI 27.4 BP 143/77 H Blood Pressure Location Lt brachial Position Sitting Pulse 85 Intake Visit Reasons: pre repeat colon Intake Note: Patient in office today for pre colonoscopy and EGD consult. CC: Patient c/o epigastric pain and burning, upset stomach, acid reflux, nausea and diarrhea sometimes. 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 She is referred by Concepcion Vora. PMX Hypothyroid Chronic pain syndrome/chronic opioid use Lumbar spondylosis with myelopathy Cervical spondylosis with myelopathy Fibromyalgia syndrome Nephrolithiasis History of bowel obstruction History of gastroduodenal fistula Gastric outlet obstruction Treatment resistant H pylori infection * SURGICAL HISTORY Colonoscopy-2018 Esophagogastroduodenoscopy 2019 Hysterectomy * ALLERGIES: NKDA * 2houses LABS: None recent Last note is as follows: She has been lost to follow-up since 2022 Assessment & Plan (1) H. pylori infection: Comment: Has failed quadruple and leva/amox rescue now onto rifabutin/amox, had a negative H pylori stool antigen 05/2022 however she has had negative antigens in the past with positive direct biopsies. Code(s): A04.8 - Other specified bacterial intestinal infections Plan: She will be due for repeat scope next year, she would like the pill prep. She seems to be doing well, she will have intermittent epigastric soreness and HB but this goes away when she drinks milk. She has not been taking the omeprazole for quite some time, and I will give her famotidine as this is better for prn use. She has a strong FHX of polyps in her brother. She was on sure she should repeat her colonoscopy in 3 or 5 years but after speaking with her brother we decide the 5 years is sufficient. With this she will be due for repeat colonoscopy next year. ROV 1 years. 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 of cervical spine without myelopathy Fibromyalgia, primary Hx of intestinal obstruction Nephrolithiasis Hypothyroidism Low vitamin D level Depression Anemia Peptic ulcer Surgical History H/O colonoscopy History of endoscopy H/O: hysterectomy Family History Father Stomach cancer Mother HTN (hypertension) Social History Housing: Apartment Alcohol intake: current Alcohol intake frequency: a few times a month Patient Tobacco Use Status: Former Tobacco user Years Smoked: 20 yrs e-Cigarette/Vaping Use: Never Used Second Hand Smoke Exposure: No service: No Current occupational status: employed Current occupation: [employer] Cognitive needs: No Hearing needs: No Vision needs: Yes Review of Systems Const Denies fatigue, Denies fever(s), Denies night sweats, Denies poor appetite and Denies weight loss ENT Reports Normal hearing present, Denies dental pain, Denies dysphagia, Denies hearing loss, Denies mouth pain, Denies odynophagia, Denies throat swelling, Denies tongue swelling and Reports other (Dentition adequate) Card Reports no additional complaints Resp Reports no additional complaints GI Details: Reports abdominal pain, Denies melena, Denies bloating, Denies hematochezia, Denies constipation, Denies GI cramping, Denies dysphagia, Denies excessive flatus, Denies early satiety, Reports heartburn, Denies diarrhea, Reports nausea, Denies odynophagia, Denies vomiting and Denies hematemesis Skin/Breast Denies pruritus, Denies lesions, Denies rash and Denies jaundice Neuro Reports Normal hearing present and Denies Abnormal speech present Endo Denies fatigue Aller/Immun Denies throat swelling and Denies tongue swelling Physical Exam Vital Signs: Last Vital Signs Pulse 85 01/12/25 15:43 BP 143/77 H 01/12/25 15:43 BMI result Body Mass Index 27.4 Const General: cooperative, no acute distress, well developed and well groomed Nutritional Appearance: well nourished and overweight Orientation/consciousness: oriented to person, oriented to place and oriented to time Limitations: No language barrier HEENT Head: Yes normocephalic and Yes atraumatic Eyes General: appearance normal, both eyes and all related structures Pupils: Equal, round and reactive pupils present Neck Neck: Yes normal visual inspection and Yes no lymphadenopathy Thyroid: Thyroid normal Resp Effort & Inspection: normal respiratory effort and able to speak in complete sentences Auscultation: clear to auscultation bilaterally Cardio Rate: regular rate Rhythm: regular rhythm Heart sounds: Normal, physiologic split S2 sound present Peripheral pulses: radial pulses present and posterior tibial pulses present GI Inspection: No distended, No Abdominal panniculus present and Yes obesity Palpation (GI): Soft to palpation, nontender, no guarding, not rigid and No hepatosplenomegaly present Percussion: Yes normal to percussion Auscultation: normal bowel sounds Rectal Exam - Female: deferred Skin General skin exam: no rashes or lesions noted, turgor normal, skin not dry, no jaundice, No spider nevi and no striae Rashes: no rashes Nails: normal Neuro General: oriented to person, oriented to place and oriented to time Cranial nerves: Yes Equal, round and reactive pupils present and Yes Normal hearing present Speech: No Abnormal speech present Extrem General: Yes normal to inspection, No clubbing, No cyanosis and No edema Psych Appearance: grossly normal and well kempt Mental Status: mental status grossly normal Speech and movement: Normal speech and movement present Affect: normal affect Attitude: cooperative Thought process: Normal thought process present and not confabulating Thought content: Normal thought content present Insight: Limited insight present (Psych) Judgement: Limited judgement present (Psych) Assessment & Plan Assessment & Plan (1) Chronic, continuous use of opioids: Code(s): F11.90 - Opioid use, unspecified, uncomplicated Category: Medical (2) H. pylori infection: Comment: Has failed quadruple and leva/amox rescue now onto rifabutin/amox, had a negative H pylori stool antigen 05/2022 however she has had negative antigens in the past with positive direct biopsies. Code(s): A04.8 - Other specified bacterial intestinal infections Category: Medical (3) Pre-op examination: Code(s): Z01.818 - Encounter for other preprocedural examination Category: Medical (4) Epigastric pain: Code(s): R10.13 - Epigastric pain Category: Medical (5) Family history of polyps in the colon: Comment: brother Code(s): Z83.71 - Family history of colonic polyps Category: Medical (6) Epigastric pain: Code(s): R10.13 - Epigastric pain Category: Medical Plan - The patient is a 59-year-old female presenting for repeat screening colonoscopy in his also complaining about Gastroesophageal Reflux Disease and Chronic Helicobacter pylori Infection. Of note, she has a history of a gastroduodenal fistula likely from her H pylori being untreated/undertreated. She is due for screening colonoscopy because of history of colon polyps. - Past history of gastric bleeding first occurred during 2020, attributed to medication for rheumatoid arthritis. - Reports ongoing stomach irritation and burning associated with lying down. - Denies current anemia, black stools, or vomiting, but notes discomfort. - Previously diagnosed with a chronic antibiotic-resistant Helicobacter pylori infection. - Consulted specialists at [facility] due to resource constraints locally. - Currently on methotrexate for presumed autoimmune-related issues. - Take pantoprazole daily as prescribed for GERD management. - Elevate the head of your bed to ease reflux symptoms at night. - Schedule and undergo the recommended endoscopy with your colonoscopy. - Monitor symptoms and report any rapid changes in gastrointestinal bleeding signs. - Follow the diet and stress management plan for IBS symptoms. - Maintain methotrexate treatment for rheumatoid arthritis as directed. - Use the [employer] card to purchase prescribed medications if necessary. - Follow up in six weeks to evaluate response to treatment. She denies any cardiac or respiratory problems. There are no prior problems with anesthesia or sedation. There are no infectious disease problems. Return office visit in 7 weeks Orders: Orders Complete Blood Count Auto Diff 01/12/25 Z01.818 - Encounter for other preprocedural examination, F11.90 - Opioid use, unspecified, uncomplicated, A04.8 - Other specified bacterial intestinal infections Comprehensive Met. Panel 01/12/25 Z01.818 - Encounter for other preprocedural examination, F11.90 - Opioid use, unspecified, uncomplicated, A04.8 - Other specified bacterial intestinal infections Referrals GI Procedure Notification Z01.818 - Encounter for other preprocedural examination, F11.90 - Opioid use, unspecified, uncomplicated, A04.8 - Other specified bacterial intestinal infections, R10.13 - Epigastric pain, Z83.71 - Family history of colonic polyps Medications: New peg 3350-electrolytes 236-22.74-6.74 -5.86 gram (Golytely) until fecal effluent is clear; do not exceed a total volume of 2,000 mL 240 mL PO Q10M 4,000 mL 0RF 1 day Z12.11 - Encounter for screening for malignant neoplasm of colon sod sulf-pot chloride-mag sulf 1.479-0.188- 0.225 gram (Sutab) 24 tabs PO PER PKG DIR 24 tabs 0RF pantoprazole (Protonix) 40 mg PO DAILY 30 tabs 6RF 30 days A04.8 - Other specified bacterial intestinal infections, R10.13 - Epigastric pain pantoprazole (Protonix) 40 mg PO DAILY 30 tabs 6RF 30 days A04.8 - Other specified bacterial intestinal infections, R10.13 - Epigastric pain pantoprazole (Protonix) 40 mg PO DAILY 30 tabs 6RF 30 days A04.8 - Other specified bacterial intestinal infections, R10.13 - Epigastric pain pantoprazole (Protonix) 40 mg PO DAILY 30 tabs 6RF 30 days A04.8 - Other specified bacterial intestinal infections, R10.13 - Epigastric pain bisacodyl (Dulcolax (bisacodyl)) 10 mg (2 x 5 mg) PO BEDTIME 4 tabs 0RF 2 days pantoprazole (Protonix) 40 mg PO DAILY 30 tabs 6RF 30 days A04.8 - Other specified bacterial intestinal infections, R10.13 - Epigastric pain pantoprazole (Protonix) 40 mg PO DAILY 90 tabs 1RF 90 days A04.8 - Other specified bacterial intestinal infections, R10.13 - Epigastric pain Coding Level of Care Code New Pt Level 3 (01503) Diagnoses Chronic, continuous use of opioids F11.90 H. pylori infection A04.8 Pre-op examination Z01.818 Epigastric pain R10.13 Family history of polyps in the colon Z83.71
--- OUTSIDE RECORDS SUMMARY | 2025-01-12 19:54 | XMS_ITS | Encounter Summary ---
Author Organization [facility] Address [address] [place] [address] [place] [address] Phone Care Team Providers Care Continuity Clerk Name Role Phone Zeny Macias Primary Care Provider [phone] Encounter Details Date Type Department Care Team (Latest Contact Info) Description 06/03/2023 Transcribe Orders Virtual Department [address] [place] [address] Zeny Macias PA [address] [place] [address] [email or web address] Age-related osteoporosis without current pathological fracture (Primary Dx) Social History Tobacco Use Types Packs/Day Years Used Date Smoking Tobacco: Never Assessed Comments Unknown Sex and Gender Information Value Date Recorded Sex Assigned at Not on file Legal Sex Female 9:42 PM EDT Gender Identity Not on file Sexual Orientation Not on file documented as of this encounter Plan of Treatment Upcoming Encounters Date Type Department Care Team (Latest Contact Info) Description 05/23/2025 2:00 PM EDT Office Visit [facility] Plastic Surgery [address] [place] [address] Vanessa Horvath PA-C [address] [place] [address] 11/14/2025 2:00 PM EDT Telemedicine - audio only [facility] Surgery [address] [place] [address] Vanessa Horvath PA-C [address] [place] [address] 87[address] 11/30/2025 Procedure Pass OR Admitting Dept - Virtual Department [address] [place] [address] 30[address] 11/30/2025 7:30 AM EDT Hospital Encounter OR Admitting Dept - Virtual Department [address] [place] [address] Dada Loja MD [address] [place] [address] 469[address] 11/30/2025 7:30 AM EDT - 11/30/2025 11:20 AM EDT Surgery OR Admitting Dept - Virtual Department [address] [place] [address] 42981 Dada Loja MD [address] [place] [address] REDUCTION BREAST 12/06/2025 1:00 PM EDT Office Visit [facility] Surgery [address] [place] [address] Vanessa Horvath PA-C [address] [place] [address] 12/13/2025 1:00 PM EDT Office Visit [facility] Surgery [address] [place] [address] Vanessa Horvath PA-C [address] [place] [address], [address] [address] [email or web address] Scheduled Procedures Name Priority Associated Diagnoses Date/Ti me REDUCTION BREAST breast hypertrophy 11/30/2025 7:30 AM EDT documented as of this encounter Visit Diagnoses Diagnosis Age-related osteoporosis without current pathological fracture- Primary documented in this encounter Care Teams Continuity Clerk Relationship Specialty Start Date End Date Zeny Macias PA [address] [place] [address] [email or web address] PCP - General Physician Artificial Teeth Inspector 08/05/23 documented as of this encounter Additional Source Comments The information contained in this document represents components of the legal health record. It is not the complete legal health record.[facility]
--- OUTSIDE RECORDS SUMMARY | 2025-01-12 19:54 | XMS_ITS | Patient Health Record ---
Author Organization [facility] Cora Dempsey Address [address] [facility] [place] [address] Care Team Providers Care Deputy Juvenile Officer Name Role Phone Zeny Macias Primary Care Provider Angelicaa Tabby White Unavailable [phone] Allergies No Known Allergies Reason For Referral No Information Medications Medication SIG (Take, Route, Frequency, Duration) Notes Start Date End Date Status Celecoxib 200 MG Oral; Duration: 45 Days Active Levothyroxine Sodium 75 MCG Oral; Duration: 30 Days Active Folic Acid 1 MG Oral; Duration: 90 Days Active Alendronate Sodium 70 MG Oral; Duration: 84 Days Active Methotrexate 17.5 MG/0.7ML as directed Subcutaneous 12/04/2022 Active Calcium 12/04/2022 Active Hydroxychloroquine Sulfate 12/04/2022 Active Social History Tobacco Use: Social History Observation Description Date Details (start date - stop date) Former Smoker NA - NA Tobacco Use/Smoking Question Answer Notes Are you a: former smoker Additional Findings: Tobacco Non-User Current no n-smoker Alcohol Screen Question Answer Notes Did you have a drink containing alcohol in the p ast year? No Points 0 Interpretation Negative Tobacco use other than smoking: Question Answer Notes Are you an other tobacco user? No Problems Problem Type SNOMED Code ICD Code Onset Dates Problem Status W/U Status Risk Notes Problem Acquired hallux valgus (51180837) Hallux valgus (acquired), right foot (M20.11) Active confirmed Plan Of Treatment No Information Insurance Providers Payer Name Payer Address Payer Phone Subscriber Number Group Number Insured Name Patient Relationship to Insured Coverage Start Date Coverage End Date Cigna [address] CLAUDIA Castro [phone] [id number] Tanika Michele Self - patient is the insured Medical (General) History Medical History History ICD Code thyroid Chicken pox Transfusions Surgical History Surgery Date(Month/Year) stomach 03/1984 uterus 05/2010
--- OUTSIDE RECORDS SUMMARY | 2025-01-12 19:54 | XMS_ITS | Clinical Summary ---
Author Organization [facility] Address [facility] [employer] [facility] [address] [place] [address] Phone Care Team Providers Care Graphic Arts Technician Name Role Phone Zeny Macias Primary Care Provider Allergies No known active allergies Medications folic acid 0.8 mg Cap Active SYNTHROID 75 mcg tablet 09/21/2024 Active methotrexate 2.5 MG Oral tablet Take 2.5 mg by mouth. 08/07/2023 Active Encounters Date Type Department Care Team Description 10/18/2024 2:45 PM EDT Office Visit [facility] Surgery [address] [place] [address] Dada Loja MD Breast hypertrophy in female (Primary Dx) from Last 3 Months Family History Medical History Relation Comments Hypertension Father Stomach cancer Father Dementia Mother Hypertension Mother Relation Status Comments Father Mother Alive Social History Tobacco Use Types Packs/Day Years Used Date Smoking Tobacco: Former Cigarettes Tobacco Cessation:Counseling Given: Not Answered Alcohol Use Standard Drinks/Week Comments Not Currently 0 (1 standard drink = 0.6 oz pur e alcohol) Education Answer Date Recorded Are you interested in more education? Not on sridevi e 11/26/2023 Are you concerned about learning? Not on file 11/26/2023 No 11/26/2023 No 11/26/2023 Digital Access Answer Date Recorded No 11/26/2023 No 11/26/2023 Reliable internet access at home? Not on file 11/26/2023 Device with a working camera? Not on file Comments Unknown Sex and Gender Information Value Date Recorded Sex Assigned at Not on file Legal Sex Female 9:42 PM EDT Gender Identity Not on file Sexual Orientation Not on file Last Filed Vital Signs Vital Sign Reading Time Taken Comments Blood Pressure 121/74 10/18/2024 3:04 PM EDT Pulse 64 10/18/2024 3:04 PM EDT Temperature - - Respiratory Rate - - Oxygen Saturation - - Inhaled Oxygen Concentration - - Weight 67.6 kg (149 lb) 10/18/2024 3:04 PM EDT Height 156.2 cm (5' 1.5 ) 10/18/2024 3:04 PM EDT Body Mass Index 27.7 10/18/2024 3:04 PM EDT Plan of Treatment Upcoming Encounters Date Type Department Care Team (Latest Contact Info) Description 05/23/2025 2:00 PM EDT Office Visit [facility] Plastic Surgery [address] [place] [address] Vanessa Horvath PA-C [address] [place] [address] 11/14/2025 2:00 PM EDT Telemedicine - audio only [facility] Plastic Surgery [address] [place] [address] Vanessa Horvath PA-C [address] [place] [address] 11/30/2025 Procedure Pass OR Admitting Dept - Virtual Department [address] [place] [address] 11/30/2025 7:30 AM EDT Hospital Encounter OR Admitting Dept - Virtual Department [address] [place] [address] Dada Loja MD [address] [place] [address] 11/30/2025 7:30 AM EDT - 11/30/2025 11:20 AM EDT Surgery OR Admitting Dept - Virtual Department [address] [place] [address] Dada Loja MD [address] [place] [address], [address] [address] REDUCTION BREAST 12/06/2025 1:00 PM EDT Office Visit [facility] Plastic Surgery [address] [place] [address] Vanessa Horvath PA-C [address] [place] [address], [address] [place] [address] 12/13/2025 1:00 PM EDT Office Visit [facility] Plastic Surgery [address] [place] [address] Vanessa Horvath PA-C [address] [place] [address], [address] [address] Scheduled Procedures Name Priority Associated Diagnoses Date/Ti me REDUCTION BREAST breast hypertrophy 11/30/2025 7:30 AM EDT Health Maintenance Due Date Last Done Comments Adult Td,Tdap Booster 1964 LIPID PANEL 1964 TSH LEVEL 1964 COVID-19 VACCINE (#1) 1969 DEPRESSION SCREENING 1976 SMOKING Hx and SMOKELESS TOB ACCO SCREENING 1977 HEPATITIS C SCREENING 1982 HIV ONE-TIME SCREENING (18-6 5 YEARS) 1982 PNEUMOCOCCAL VACCINES (50+ y ears) (1 of 2 - PCV) 1983 ZOSTER VACCINES (1 of 2) 1983 PAP SMEAR 1985 SCREENING FOR DIABETES 1999 MAMMOGRAM 2004 COLOGUARD 2009 COLONOSCOPY 2009 COLORECTAL CANCER SCREENING 2009 FIT TEST 2009 FOBT 2009 SIGMOIDOSCOPY 2009 VIRTUAL COLONOSCOPY 2009 RSV VACCINE (1 - Risk 50-74 years 1-dose series) 2014 INFLUENZA VACCINE (#1) 2024 HEPATITIS A VACCINES Aged Out No long er eligible based on patient's age to complete this topic HIB VACCINES Aged Out No longer eligi ble based on patient's age to complete this topic MENINGOCOCCAL VACCINES (ACWY) Aged Out No longer eligible based on patient's age to complete this topic MENINGOCOCCAL VACCINES (B) Aged Out N o longer eligible based on patient's age to complete this topic Medical Devices Not on file Insurance CIGNA PPO CIGNA PPO CIGNA PPO CIGNA PPO Member Subscriber Plan / Payer (Ef fective 2020-Present) Name:Tanika Michele Relation to Subscriber:Self Name:Tanika Michele Payer ID:[id number] ([facility]) Type:PPO Address: [address] [place] [id number] CIGNA PPO CIGNA PPO Care Teams Graphic Arts Technician Relationship Specialty Start Date End Date Zeny Macias PA [address] [place] [phone] [email or web address] PCP - General Physician Bean Viner 08/05/23 Additional Source Comments The information contained in this document represents components of the legal health record. It is not the complete legal health record.[facility]
--- OUTSIDE RECORDS SUMMARY | 2025-01-12 19:54 | XMS_ITS | Encounter Summary ---
Author Organization [facility] Address [address] [place] [address] [place] [address] Phone Care Team Providers Care Clerical Administrative Assistant Name Role Phone Zeny Macias Primary Care Provider [phone] Encounter Details Date Type Department Care Team (Latest Contact Info) Description 04/07/2024 Transcribe Orders Virtual Department [address] [place] [address] Roya Cheng MD [address] [place] [address] [email or web address] Asymptomatic menopausal state (Primary Dx) Social History Tobacco Use Types Packs/Day Years Used Date Smoking Tobacco: Never Assessed Education Answer Date Recorded Are you interested [...] Description 05/23/2025 2:00 PM EDT Office Visit [facility] Pl[facility] Surgery [address] [place] [address] Vanessa Horvath PA-C [address] [place] [address] 11/14/2025 2:00 PM EDT Telemedicine - audio only [facility] Plastic Surgery [address] [place] [address] 19[address] Vanessa Horvath PA-C [address] [place] [address] 25337 11/30/2025 Procedure Pass OR Admitting Dept - Virtual Department [address] [place] [address] 317[address] 11/30/2025 7:30 AM EDT Hospital Encounter OR Admitting Dept - Virtual Department [address] [place] [address] Dada Loja MD [address] [place] [address] 46[address] 11/30/2025 7:30 AM EDT - 11/30/2025 11:20 AM EDT Surgery OR Admitting Dept - Virtual Department [address] [place] [address] Dada Loja MD [address] [place] [address] 67297 REDUCTION BREAST 12/06/2025 1:00 PM EDT Office Visit [facility] Plastic Surgery [address] [place] [address] Vanessa Horvath PA-C [address] [place] [address] 12/13/2025 1:00 PM EDT Office Visit [facility] Pl[facility] Surgery [address] [place] [address] Vanessa Horvath PA-C [address] [facility], [address] [place] [address] [email or web address] Scheduled Orders Name Type Priority Associated Diagnoses Orde r Schedule DXA Screening Imaging Routine Asymptomatic menopausal state Expected: 04/07/2024, Expires: 04/07/2026 Scheduled Procedures Name Priority Associated Diagnoses Date/Ti me REDUCTION BREAST breast hypertrophy 11/30/2025 7:30 AM EDT documented as of this encounter Visit Diagnoses Diagnosis Asymptomatic menopausal state- Primary documented in this encounter Care Teams Clerical Administrative Assistant Relationship Specialty Start Date End Date Zeny Macias PA [address] [place] [address] [email or web address] PCP - General Physician Principal Clerk Typist 08/05/23 documented as of this encounter Additional Source Comments The information contained in this document represents components of the legal health record. It is not the complete legal health record.[facility]
== END 2025-01-12 16:39 | disposition home or self-care (01) ==
LOC: HO.HGI 15:38
PROVIDERS: Visit Provider Nurse Practitioner
DX: Z01.818 Encounter for other preprocedural examination (principal); Z12.11 Encounter for screening for malignant neoplasm of colon; Z83.719 Family history of colon polyps, unspecified; A04.8 Other specified bacterial intestinal infections; R10.13 Epigastric pain; F11.90 Opioid use, unspecified, uncomplicated
CPT/HCPCS: S0285

== ENCOUNTER 2025-03-03 12:31 | Outpatient (AMB) | payer OTHER, SELFPAY ==
--- NOTE | 2025-03-03 12:33 | MHC.OFFVIS ---
Vital Signs 03/03/25 12:38 Height 5 ft 2 in Weight 152 lb BMI 27.8 BP 114/80 Blood Pressure Location Rt brachial Position Sitting Pulse 84 Pulse Source Pulse Oximeter Pulse Oximetry (%) 96 Oxygen Delivery Method Room Air Intake Visit Reasons: Follow up H pylori, epigastric pain Intake Note: Est pt for mgmt of GERD / Chronic abd pain. CC: C/O epigastric pain, burning sensation despite the PPI they are currently taking. No additional sx or concerns per pt. Plate Take Out Worker Required: No Accompanied by: Self / Same As Patient Allergies No Known Allergies (No Known Allergies*) Allergy (Verified 01/12/25 15:46) HPI HPI Follow up H pylori, epigastric pain: Details: Assessment & Plan (1) Chronic, continuous use of opioids: Code(s): F11.90 - Opioid use, unspecified, uncomplicated Category: Medical (2) H. pylori infection: Comment: Has failed quadruple and leva/amox rescue now onto rifabutin/amox, had a negative H pylori stool antigen 05/2022 however she has had negative antigens in the past with positive direct biopsies. Code(s): A04.8 - Other specified bacterial intestinal infections Category: Medical (3) Pre-op examination: Code(s): Z01.818 - Encounter for other preprocedural examination Category: Medical (4) Epigastric pain: Code(s): R10.13 - Epigastric pain Category: Medical (5) Family history of polyps in the colon: Comment: brother Code(s): Z83.71 - Family history of colonic polyps Category: Medical (6) Epigastric pain: Code(s): R10.13 - Epigastric pain Category: Medical Plan - The patient is a 59-year-old female presenting for repeat screening colonoscopy in his also complaining about Gastroesophageal Reflux Disease and Chronic Helicobacter pylori Infection. Of note, she has a history of a gastroduodenal fistula likely from her H pylori being untreated/undertreated. She is due for screening colonoscopy because of history of colon polyps. - Past history of gastric bleeding first occurred during 2020, attributed to medication for rheumatoid arthritis. - Reports ongoing stomach irritation and burning associated with lying down. - Denies current anemia, black stools, or vomiting, but notes discomfort. - Previously diagnosed with a chronic antibiotic-resistant Helicobacter pylori infection. - Consulted specialists at [facility] due to resource constraints locally. - Currently on methotrexate for presumed autoimmune-related issues. - Take pantoprazole daily as prescribed for GERD management. - Elevate the head of your bed to ease reflux symptoms at night. - Schedule and undergo the recommended endoscopy with your colonoscopy. - Monitor symptoms and report any rapid changes in gastrointestinal bleeding signs. - Follow the diet and stress management plan for IBS symptoms. - Maintain methotrexate treatment for rheumatoid arthritis as directed. - Use the [employer] to purchase prescribed medications if necessary. - Follow up in six weeks to evaluate response to treatment. She denies any cardiac or respiratory problems. There are no prior problems with anesthesia or sedation. There are no infectious disease problems. Return office visit in 7 weeks Orders: Orders Complete Blood Count Auto Diff 01/12/25 Z01.818 - Encounter for other preprocedural examination, F11.90 - Opioid use, unspecified, uncomplicated, A04.8 - Other specified bacterial intestinal infections Comprehensive Met. Panel 01/12/25 Z01.818 - Encounter for other preprocedural examination, F11.90 - Opioid use, unspecified, uncomplicated, A04.8 - Other specified bacterial intestinal infections Referrals GI Procedure Notification Z01.818 - Encounter for other preprocedural examination, F11.90 - Opioid use, unspecified, uncomplicated, A04.8 - Other specified bacterial intestinal infections, R10.13 - Epigastric pain, Z83.71 - Family history of colonic polyps Medications: New peg 3350-electrolytes 236-22.74-6.74 -5.86 gram (Golytely) until fecal effluent is clear; do not exceed a total volume of 2,000 mL 240 mL PO Q10M 4,000 mL 0RF 1 day Z12.11 - Encounter for screening for malignant neoplasm of colon sod sulf-pot chloride-mag sulf 1.479-0.188- 0.225 gram (Sutab) 24 tabs PO PER PKG DIR 24 tabs 0RF pantoprazole (Protonix) 40 mg PO DAILY 30 tabs 6RF 30 days A04.8 - Other specified bacterial intestinal infections, R10.13 - Epigastric pain pantoprazole (Protonix) 40 mg PO DAILY 30 tabs 6RF 30 days A04.8 - Other specified bacterial intestinal infections, R10.13 - Epigastric pain pantoprazole (Protonix) 40 mg PO DAILY 30 tabs 6RF 30 days A04.8 - Other specified bacterial intestinal infections, R10.13 - Epigastric pain pantoprazole (Protonix) 40 mg PO DAILY 30 tabs 6RF 30 days A04.8 - Other specified bacterial intestinal infections, R10.13 - Epigastric pain bisacodyl (Dulcolax (bisacodyl)) 10 mg (2 x 5 mg) PO BEDTIME 4 tabs 0RF 2 days pantoprazole (Protonix) 40 mg PO DAILY 30 tabs 6RF 30 days A04.8 - Other specified bacterial intestinal infections, R10.13 - Epigastric pain pantoprazole (Protonix) 40 mg PO DAILY 90 tabs 1RF 90 days A04.8 - Other specified bacterial intestinal infections, R10.13 - Epigastric pain LABS: EGD/COLONOSCOPY 04/29/2025 BIOPSY TODAY'S VISIT [facility] Medical History Normocytic normochromic anemia Microhematuria Dizziness of unknown etiology COVID-19 vaccine series completed Vitamin D deficiency Gastroduodenal fistula Gastric outlet obstruction Chronic, continuous use of opioids Chronic pain syndrome Spondylosis of lumbar region without myelopathy or radiculopathy Spondylosis of cervical spine without myelopathy Fibromyalgia, primary Hx of intestinal obstruction Nephrolithiasis Hypothyroidism Low vitamin D level Depression Anemia Peptic ulcer Surgical History H/O colonoscopy History of endoscopy H/O: hysterectomy Family History Father Stomach cancer Mother HTN (hypertension) Social History Housing: Apartment Alcohol intake: current Alcohol intake frequency: a few times a month Patient Tobacco Use Status: Former Tobacco user Years Smoked: 20 yrs e-Cigarette/Vaping Use: Never Used Second Hand Smoke Exposure: No service: No Current occupational status: employed 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 Cognitive needs: No Hearing needs: No Vision needs: Yes Review of Systems Eyes Details: glasses ENT Reports Normal hearing present Neuro Reports Normal hearing present and Denies Abnormal speech present Physical Exam Vital Signs: Last Vital Signs Pulse 84 03/03/25 12:38 BP 114/80 03/03/25 12:38 Pulse Ox 96 03/03/25 12:38 Oxygen Delivery Method Room Air 03/03/25 12:38 BMI result Body Mass Index 27.8 Const General: cooperative, no acute distress, well developed and well groomed Nutritional Appearance: average body habitus and well nourished Orientation/consciousness: oriented to person, oriented to place and oriented to time Limitations: No language barrier HEENT Head: Yes normocephalic and Yes atraumatic Eyes General: appearance normal, both eyes and all related structures Pupils: Equal, round and reactive pupils present Neck Neck: Yes normal visual inspection and Yes no lymphadenopathy Thyroid: Thyroid normal Resp Effort & Inspection: normal respiratory effort and able to speak in complete sentences Auscultation: clear to auscultation bilaterally Cardio Rate: regular rate Rhythm: regular rhythm Heart sounds: Normal, physiologic split S2 sound present Peripheral pulses: radial pulses present and posterior tibial pulses present GI Inspection: No distended and No Abdominal panniculus present Palpation (GI): Soft to palpation, nontender, no guarding, not rigid, No hepatosplenomegaly present and Hepatosplenomegaly present Percussion: Yes normal to percussion Auscultation: normal bowel sounds Rectal Exam - Female: deferred Skin General skin exam: no rashes or lesions noted, turgor normal, skin not dry, no jaundice, No spider nevi and no striae Rashes: no rashes Nails: normal Neuro General: oriented to person, oriented to place and oriented to time Cranial nerves: Yes Equal, round and reactive pupils present and Yes Normal hearing present Speech: No Abnormal speech present Extrem General: Yes normal to inspection, No clubbing, No cyanosis and No edema Psych Appearance: grossly normal and well kempt Mental Status: mental status grossly normal Speech and movement: Normal speech and movement present Affect: normal affect Attitude: cooperative Thought process: Normal thought process present and not confabulating Thought content: Normal thought content present Insight: Good insight present (Psych) Judgement: Good judgement present (Psych) Assessment & Plan Assessment & Plan (1) Epigastric pain: Code(s): R10.13 - Epigastric pain Category: Medical (2) GERD (gastroesophageal reflux disease): Code(s): K21.9 - Gastro-esophageal reflux disease without esophagitis Category: Medical Plan She is on pantoprazole 40 mg daily Subjective Patient returns for follow-up of upper GI symptoms after starting pantoprazole. Reports 50?60% improvement but persistent daily burning/sensitive irritation throughout the day despite taking pantoprazole in the morning. Symptoms are not episodic; notes constant irritation, though overall better than prior. Patient believes stress has contributed. Dietary patterns discussed: favors acidic/sour foods and sauces; has been reducing sugars (including from processed/canned foods), stopped coffee, is currently avoiding alcohol, and increasing water intake. Plans further dietary changes emphasizing vegetables/greens, fruits, and protein, and is interested in prebiotic/probiotic strategies. History notable for prior H. pylori infection that was difficult to eradicate with subsequent negative tests; pending endoscopic evaluation is planned to clarify current status. Patient currently taking alendronate (began ~3 years ago), methotrexate, thyroid medication, and uses celecoxib as needed. Possible rheumatoid arthritis under management. Objective Assessment & Plan Persistent dyspepsia/heartburn on PPI; history of H. pylori: Partial response to pantoprazole (approximately 50?60% improvement) with ongoing daily irritation. Prior H. pylori infection with subsequent negative tests; endoscopic assessment with biopsy planned to evaluate for persistent or recurrent infection and other causes. Alendronate may exacerbate reflux/irritation; stress and dietary triggers may contribute. - Continue current pantoprazole regimen until endoscopic evaluation. - Proceed with scheduled EGD and colonoscopy on April 29 with biopsy to assess for H. pylori and other pathology. - Bowel prep: patient has bisacodyl tablets; take two tablets two nights before the procedure (Friday). Four tablets were dispensed to allow for extras; only two are needed. - Bowel prep [facility] to be obtained using [employer] advised cost approximately $137.86. GoLytely (PEG) sent to [facility] as alternative per patient request. Follow pharmacy timing instructions for the drink on the day prior to procedure (). - Counseling provided on diet and triggers: acidic foods, caffeine (coffee), and alcohol can be irritating; patient is currently avoiding coffee and alcohol and plans further dietary modification. Reviewed distinction between prebiotics (bacterial substrates) and probiotics (live organisms) and discussed incorporating both as tolerated. - Follow-up visit scheduled for May 10 at 10:45; patient may adjust if work schedule changes. LABS: (CBC AND CHEM PANEL) EGD/COLONOSCOPY 04/29/2025 BIOPSY Medications: New sod sulf-pot chloride-mag sulf 1.479-0.188- 0.225 gram (Sutab) 24 tabs PO PER PKG DIR 24 tabs 0RF peg 3350-electrolytes 236-22.74-6.74 -5.86 gram (Golytely) until fecal effluent is clear; do not exceed a total volume of 2,000 mL 240 mL PO Q10M 4,000 mL 0RF 1 day Z12.11 - Encounter for screening for malignant neoplasm of colon sod sulf-pot chloride-mag sulf 1.479-0.188- 0.225 gram (Sutab) using [employer] not insurance for payment 24 tabs PO PER PKG DIR 24 tabs 0RF Coding Level of Care Code Est Pt Level 3 (94470) Diagnoses Epigastric pain R10.13 GERD (gastroesophageal reflux disease) K21.9
[2025-03-03 12:38] VITALS: BP 114/80; PULSE 84; O2SAT 96; BMI 27.8
--- OUTSIDE RECORDS SUMMARY | 2025-03-03 16:19 | XMS_ITS | Clinical Summary ---
Author Organization [facility] Address [address] [place] [address] Phone Care Team Providers Care Shield Operator Name Role Phone Zeny Macias Primary Care Provider Allergies No known active allergies Medications folic acid 0.8 mg Cap Active SYNTHROID 75 mcg tablet 09/21/2024 Active methotrexate 2.5 MG Oral tablet Take 2.5 mg by mouth. 08/07/2023 Active Family History Medical History Relation Comments Hypertension [...] Description 05/23/2025 2:00 PM EDT Office Visit [facility] [address] [place] [address] Vanessa Horvath PA-C [address] [place] [address] 11/14/2025 2:00 PM EDT Telemedicine - audio only [facility] [address] [address] Vanessa Horvath PA-C [address] [place] [address] 11/30/2025 Procedure Pass OR Admitting Dept - Virtual Department [address] [place] [address] 11/30/2025 7:30 AM EDT Hospital Encounter OR Admitting Dept - Virtual Department [address] [place] [address] Dada Loja MD [address] [place] [address] 11/30/2025 7:30 AM EDT - 11/30/2025 11:20 AM EDT Surgery OR Admitting Dept - Virtual Department [address] [place] [address] Dada Loja MD [address] [place] [address] REDUCTION BREAST 12/06/2025 1:00 PM EDT Office Visit [facility] [address] [place] [address] Vanessa Horvath PA-C [address] [facility], [address] [place] [address] 12/13/2025 1:00 PM EDT Office Visit [facility] [address] [place] [address] Vanessa Horvath PA-C [address] [facility], [address] [place] [address] Scheduled Procedures Name Priority Associated Diagnoses Date/Ti [...] Subscriber Plan / Payer (Ef fective 2020-Present) Name:Michele Tanika Relation to Subscriber:Self Name:Michele Tanika Payer ID:[id number] (NAIC) Type:PPO Address: [address] [place] [id number] CIGNA PPO CIGNA PPO Care Teams Shield Operator Relationship Specialty Start Date End Date Zeny Macias PA [address] [place] [address] [email or web address] PCP - General Physician Media Consultant 08/05/23 Additional Source Comments The information contained in this document represents components of the legal health record. It is not the complete legal health record.[facility]
--- OUTSIDE RECORDS SUMMARY | 2025-03-03 16:19 | XMS_ITS | Encounter Summary ---
Author Organization [facility] Address [address] [facility] [address] [place] [address] Phone Care Team Providers Care Human Relations Manager Name Role Phone Zeny Macias Primary Care Provider [phone] Encounter Details Date Type Department Care Team (Latest Contact Info) Description 04/07/2024 Transcribe Orders Virtual Department [address] [place] [address] Roya Cheng MD [address] [place] [address] [email or web address] Asymptomatic menopausal state (Primary Dx) Social [...] Description 05/23/2025 2:00 PM EDT Office Visit [facility] [address] [place] [address] Vanessa Horvath PA-C [address] [place] [address] 11/14/2025 2:00 PM EDT Telemedicine - audio only [facility] Plastic Surgery [address] [address] Vanessa Horvath PA-C [address] [place] [address] 11/30/2025 Procedure Pass OR Admitting Dept - Virtual Department [address] [place] [address] 11/30/2025 7:30 AM EDT Hospital Encounter OR Admitting Dept - Virtual Department [address] [place] [address] Dada Loja MD [address] [place] [address] 11/30/2025 7:30 AM EDT - 11/30/2025 11:20 AM EDT Surgery OR Admitting Dept - Virtual Department [address] [place] [address] Dada Loja MD [address] [place] [address] REDUCTION BREAST 12/06/2025 1:00 PM EDT Office Visit [facility] Plastic Surgery [address] [address] Vanessa Horvath PA-C [address] [place] [address] 12/13/2025 1:00 PM EDT Office Visit [facility] Plastic Surgery [address] [address] Vanessa Horvath PA-C [address] [facility], [address] [place] [address] [email or web address] Scheduled Orders Name Type Priority Associated Diagnoses Orde r Schedule DXA Screening Imaging Routine Asymptomatic menopausal state Expected: 04/07/2024, Expires: 04/07/2026 Scheduled Procedures Name Priority Associated Diagnoses Date/Ti me REDUCTION BREAST breast hypertrophy 11/30/2025 7:30 AM EDT documented as of this encounter Visit Diagnoses Diagnosis Asymptomatic menopausal state- Primary documented in this encounter Care Teams Human Relations Manager Relationship Specialty Start Date End Date Zeny Macias PA [address] [place] [address] [email or web address] PCP - General Physician Log Rider 08/05/23 documented as of this encounter Additional Source Comments The information contained in this document represents components of the legal health record. It is not the complete legal health record.[facility]
--- OUTSIDE RECORDS SUMMARY | 2025-03-03 16:19 | XMS_ITS | Patient Health Record ---
Author Organization [facility] Cora Dempsey Address [address] [facility] [place] [address] Care Team Providers Care Paster Operator Name Role Phone Zeny Macias Primary Care Provider Angelicaa Tabby White Unavailable [phone] Allergies No Known Allergies Reason For Referral [...] Status Risk Notes Problem Acquired hallux valgus ([id number]) Hallux valgus (acquired), right foot (M20.11) Active confirmed Plan Of Treatment No Information Insurance Providers Payer Name Payer Address Payer Phone Subscriber Number Group Number Insured Name Patient Relationship to Insured Coverage Start Date Coverage End Date Cigna [address] CLAUDIA Castro [phone] [id number] Tanika Michele Self - patient is the insured Medical (General) History Medical History History ICD Code thyroid Chicken pox Transfusions Surgical History Surgery Date(Month/Year) stomach 03/1984 uterus 05/2010
--- OUTSIDE RECORDS SUMMARY | 2025-03-03 16:19 | XMS_ITS | Encounter Summary ---
Author Organization [facility] Address [address] [place] [address] Phone Care Team Providers Care Clinical Researcher Name Role Phone Zeny Macias Primary Care Provider [phone] Encounter Details Date Type Department Care Team (Latest Contact Info) Description 06/03/2023 Transcribe Orders Virtual Department [address] [place] [address] Zeny Macias PA [address] [place] [address] [email or web address] Age-related osteoporosis without current pathological fracture [...] Description 05/23/2025 2:00 PM EDT Office Visit [facility] Plastic Surgery [address] [address] Vanessa Horvath PA-C [address] [place] [address] 11/14/2025 2:00 PM EDT Telemedicine - audio only [facility] Surgery [address] [address] Vanessa Horvath PA-C [address] [place] [address] 11/30/2025 Procedure Pass OR Admitting Dept - Virtual Department [address] [place] [address] 11/30/2025 7:30 AM EDT Hospital Encounter OR Admitting Dept - Virtual Department [address] [place] [address] Dada Loja MD [address] [place] [address] 11/30/2025 7:30 AM EDT - 11/30/2025 11:20 AM EDT Surgery OR Admitting Dept - Virtual Department [address] [place] [address] Dada Loja MD [address] [place] [address] REDUCTION BREAST 12/06/2025 1:00 PM EDT Office Visit [facility] [address] [place] [address] Vanessa Horvath PA-C [address] [place] [address] 12/13/2025 1:00 PM EDT Office Visit [facility] [address] [place] [address] Vanessa Horvath PA-C [address] [place] [address] Scheduled Procedures Name Priority Associated Diagnoses Date/Ti me REDUCTION BREAST breast hypertrophy 11/30/2025 7:30 AM EDT documented as of this encounter Visit Diagnoses Diagnosis Age-related osteoporosis without current pathological fracture- Primary documented in this encounter Care Teams Clinical Researcher Relationship Specialty Start Date End Date Zeny Macias PA [address] [place] [address] [email or web address] PCP - General Physician Educational Sign Language Interpreter 08/05/23 documented as of this encounter Additional Source Comments The information contained in this document represents components of the legal health record. It is not the complete legal health record.[facility]
== END 2025-03-03 13:05 | disposition home or self-care (01) ==
LOC: HO.HGI 12:31
PROVIDERS: Visit Provider Nurse Practitioner
DX: R10.13 Epigastric pain (principal); K21.9 Gastro-esophageal reflux disease without esophagitis
CPT/HCPCS: 99213